=== PATIENT | female | born 1985 | race Caucasian/White ===

== ENCOUNTER 2019-01-03 18:15 | Emergency (ER) | payer OTHER, MEDICAID, SELFPAY ==
[2019-01-03 18:29] VITALS: BP 125/68; PULSE 91; RESP 16; TEMP 37.1; O2SAT 100
--- NOTE | 2019-01-03 18:32 | ED.NAVMDI ---
HPI - Nausea/Vomiting/Diarrhea General Chief complaint: Nausea/Vomiting/Diarrhea Stated complaint: n&v/cold and hot since 8am Time Seen by Provider: 01/03/19 18:20 Source: patient Mode of arrival: ambulatory Limitations: no limitations History of Present Illness HPI Narrative: 33-year-old otherwise healthy female here for evaluation of nausea and vomiting since 0800 hours this morning. Multiple episodes. No blood in the vomit. Had 1 episode of diarrhea. No known sick contacts. No urinary symptoms. No recent travel. No recent antibiotics. Subjective fevers. Related Data Previous Rx's Medication Instructions Recorded ondansetron 4 mg PO Q6H PRN #14 tab 01/03/19 Allergies Allergy/AdvReac Type Severity Reaction Status Date / Time No Known Drug Allergies Allergy Verified 01/03/19 18:40 Review of Systems Constitutional Reports fever(s) (Subjective) Cardiovascular Denies chest pain and Denies dyspnea Respiratory Denies dyspnea Gastrointestinal Gastrointestinal: Reports abdominal pain, Reports diarrhea, Reports nausea and Reports vomiting Genitourinary Denies dysuria Musculoskeletal Denies myalgias and Denies arthralgias Integumentary/Breasts Denies new lesions and Denies rash Neurologic Denies behavioral changes Psychiatric Denies behavioral changes Allergic/Immunologic Denies urticaria PFS Medical History Patient denies medical problems (Acute) Social History lives independently: Yes Smoking Status: Never smoker Social History lives independently: Yes Smoking Status: Never smoker Exam Initial Vital Signs Initial Vital Signs: Vital Signs Temperature 98.8 F 01/03/19 18:29 Pulse Rate 91 H 01/03/19 18:29 Respiratory Rate 16 01/03/19 18:29 Blood Pressure 125/68 01/03/19 18:29 Pulse Oximetry 100 01/03/19 18:29 Const General: cooperative, comfortable, well developed and well groomed Orientation: alert, awake and oriented x3 Resp Effort & Inspection: normal respiratory effort Auscultation: clear to auscultation bilaterally Cardio Rate: regular rate Rhythm: regular rhythm GI Inspection: non-distended Palpation: soft, No firm and tender (Diffuse) Skin Lesions: no lesions Rashes: no rashes Neuro General: alert and awake Cognition: normal cognition Speech: speech normal Extrem General: normal to inspection and capillary refill normal Course Orders Ordered: Discontinued Medications Sodium Chloride (Normal Saline 0.9%) 1,000 mls @ 1,000 mls/hr IV BOLUS ONE Stop: 01/03/19 19:30 Last Infusion: 01/03/19 19:28 Dose: 0 mls/hr Admin: 01/03/19 18:46 Dose: 1,000 mls/hr Ondansetron HCl (Zofran) 4 mg IV NOW ONE Stop: 01/03/19 18:32 Last Admin: 01/03/19 18:41 Dose: 4 mg Vital Signs - 8 hr 01/03/19 18:29 01/03/19 20:01 Temperature 98.8 F Pulse Rate 91 H 61 Respiratory Rate 16 15 Blood Pressure 125/68 Blood Pressure [Left Arm] 109/54 L Pulse Oximetry 100 100 MDM - Nausea/Vomiting/Diarrhea MDM Narrative Medical decision making narrative: Patient was given a L fluids. She has a very benign abdominal exam. Has been tolerating oral intake however still continues to have a small amount of nausea. Will hold on any labs. No indication for antibiotics. Patient was given return precautions and follow-up instructions. She expressed understanding and agreement with plan. Discharge Plan Departure Patient Disposition: Home Clinical Impression: Nausea and vomiting Qualifiers: Vomiting type: unspecified Vomiting Intractability: unspecified Qualified Code(s): R11.2 - Nausea with vomiting, unspecified Instructions: DI for Nausea -- Adult, DI for Vomiting -- Adult Activity Restrictions/Additional Instructions: Use the nausea medication as directed. Increase your fluid intake like we discussed. You can advance your diet as tolerated. Return to the emergency department for any new or worsening symptoms Prescriptions: New ondansetron 4 mg tablet,disintegrating 4 mg PO Q6H PRN (Reason: nausea and vomiting) Qty: 14 RF: 0
[2019-01-03] MEDS: ONDANSETRON 4 MG/2 ML INJ IV (18:41)
[2019-01-03] MEDS: SODIUM CHLORIDE 0.9% 1,000 ML 1000 ML IV (18:46)
[2019-01-03 20:01] VITALS: BP 109/54; PULSE 61; RESP 15; O2SAT 100
[2019-01-03 20:30] VITALS: BP 108/58; PULSE 69; RESP 17; O2SAT 99
[2019-01-03] MEDS: ONDANSETRON 4 MG ODT PREPACK 1 BOTTLE MISC (20:48)
[2019-01-03] MEDS: ONDANSETRON 4 MG ODT SL (20:48)
[2019-01-03 21:03] VITALS: BP 128/74; PULSE 71; RESP 14; TEMP 37.3; O2SAT 100
== END 2019-01-03 21:04 | disposition home or self-care (01) ==
PROVIDERS: Emergency Provider Emergency Medicine
DX: R11.2 Nausea with vomiting, unspecified (principal)
CPT/HCPCS: 36591; 96361; 96374; 99283; 99284; J2405